=== PATIENT | female | born 1955 | race Caucasian/White ===

== ENCOUNTER 2021-09-23 12:11 | Outpatient (CLI) | payer MEDICAID, SELFPAY ==
--- NOTE | 2021-09-23 12:57 | MM_ITS ---
WS: [id number] DIAGNOSTIC LEFT DIGITAL MAMMOGRAM WITH CAD HISTORY: HX OF BREAST CA; RT MASTECTOMY COMPARISON: 04/15/2019, 12/04/2017 Technique: CC, MLO and ML views. Breast composition: There are scattered areas of fibroglandular density. Long-term stability of a no dule in the upper outer quadrant and additional lymph nodes towards the axillary tail. No suspicious masses or calcifications. MM/[place] [id number] IMPRESSION: BI-RADS: 2-Benign FOLLOW UP: 1 Year Follow-up
== END 2021-09-23 12:12 | disposition home or self-care (01) ==
LOC: RADSHAW 12:19
PROVIDERS: PCP Family Medicine; Visit Provider Family Medicine
DX: Z85.3 Personal history of malignant neoplasm of breast (principal)
CPT/HCPCS: 77065

== ENCOUNTER 2024-06-21 08:37 | Emergency (ER) | payer MEDICAID, MEDICARE, SELFPAY ==
[2024-06-21 08:42] VITALS: BP 147/81; PULSE 104; TEMP 36.8; O2SAT 98; BMI 67.3
--- NOTE | 2024-06-21 08:46 | XR_ITS ---
WS: [id number] PORTABLE CHEST HISTORY: Shortness of breath COMPARISON: None available. Low lung volumes. Significant decreased pulmonary expansion and inspiration effort. Mild elevation of the RIGHT hemidiaphragm. No pleural effusion or pneumothorax. Cardiac size: Cardiac silhouette is enlarged but this is probably exacerbated by portable technique a nd poor inspiration. Mediastinum/Aorta: Normal mediastinum. No osseous abnormality seen. XR/XR chest 1V portable [id number] IMPRESSION: 1. Quality this examination is compromised by body habitus, portable technique and poor inspiration. 2. Slight elevation RIGHT hemidiaphragm. 3. Heart appears enlarged but this is probably related to technique.
[2024-06-21 08:59] VITALS: PULSE 99; O2SAT 98
[2024-06-21 09:19] LABS: Basophils % 0.4 %; Eosinophils # 0.1 10^3/uL (0.0-0.8); Eosinophils % 1.3 %; Lymphocytes # 1.5 10^3/uL (0.8-4.8); Lymphocytes % 21.7 %; Mean Corpuscular HGB Conc 31.7 g/dL (30-55); Mean Corpuscular Hemoglobin 30.6 pg (27-33); Mean Corpuscular Volume 96.8 fl (85-98); Mean Platelet Volume 9.1 fL (7.4-10.4); Monocytes # 0.6 10^3/uL (0.2-0.9); Monocytes % 8.4 %; Neutrophils # 4.63 10^3/uL (1.8-7.7); Neutrophils % 68.1 %; Nucleated Red Blood Cells % 0 %; Platelet Count 236 10^3/cmm (157-399); Red Blood Count 4.34 10^6/uL (3.85-5.65); Red Cell Distribution Width 13.6 % (12.1-15.1); White Blood Count 6.81 10^3/uL (3.29-11.43)
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
--- NOTE | 2024-06-21 09:38 | ECG_ITS ---
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 Measurements Intervals [place] Rate: 95 P: 67 CO: 225 QRS: -42 QRSD: 137 T: 51 QT: 396 QTc: 498 Interpretive Statements SINUS RHYTHM WITH FIRST DEGREE AV BLOCK LEFT AXIS DEVIATION [QRS AXIS < -30] RIGHT BUNDLE BRANCH BLOCK [120+ ms QRS DURATION, UPRIGHT V1, 40+ ms S IN I/aVL/V4/V5/V6] No previous ECG available for comparison Electronically Signed On 06-21-2024 10:11:11 CDT by Evaristo Mariee M.D. [id number]
[2024-06-21 09:45] LABS: Alanine Aminotransferase 11 U/L (0-33); Albumin Level 3.8 g/dL (3.5-5.2); Alkaline Phosphatase 87 U/L (35-105); Anion Gap 18.2 (5-19); Aspartate Amino Transferase 11 U/L (0-32); Blood Urea Nitrogen 25 mg/dL (8-23); Calcium 9.4 mg/dL (8.5-10.5); Carbon Dioxide 25 mmol/L (22-29); Chloride 104 mmol/L (98-107); Globulin 3.7 g/dL (1.3-4.6); Glomerular Filtration Rate 44.8 mL/min (90-130); Glucose 96 mg/dL (65-115); NT Pro B Type Natriuretic Pept 70 pg/mL (0-125); Osmolality Calculated 300 mOsm/kg (285-295); Potassium 4.2 mmol/L (3.5-5.1); Sodium 143 mmol/L (136-145); Total Bilirubin 0.3 mg/dL (0.15-1.2); Total Protein 7.5 g/dL (6.6-8.7)
[2024-06-21 09:49] LABS: Creatinine Clr Calc Pharmacy 64.5604
--- NOTE | 2024-06-21 10:08 | USCV_ITS ---
Julita Dorado Age: 69 Gender: F : 1955 Exam Date: 06/21/2024 10:52 Ordering Phys: Lily De La Fuente MD Technologist: CT Exam Location: [facility] [place]_ Indication: swelling PROCEDURES: Venous duplex imaging was performed in bilateral lower extremities. FINDINGS: Examination was technically limited due to body habitus. No evidence of DVT seen in any vessel visualized at this time. Not all veins are well seen. CONCLUSIONS Technically limited exam. No DVT seen but not all seen adequately. Dr. Carmelita Sainz DO (Electronically Signed) Final Date: 21 June 2024 12:57 S
[2024-06-21] MEDS: FUROsemide 10 mg/mL SDV 10mL 40 MG IVP (11:00)
[2024-06-21 13:00] VITALS: BP 168/90; PULSE 91; O2SAT 96
[2024-06-21 16:42] VITALS: BP 166/87; PULSE 98; O2SAT 96
[2024-06-21 23:41] VITALS: PULSE 95; RESP 18; O2SAT 95
== END 2024-06-21 23:42 | disposition home or self-care (01) ==
PROVIDERS: Emergency Provider Emergency Medicine
DX: R60.0 Localized edema (principal); I87.8 Other specified disorders of veins; E66.01 Morbid (severe) obesity due to excess calories; Z68.44 Body mass index [BMI] 60.0-69.9, adult; L89.302 Pressure ulcer of unspecified buttock, stage 2; N28.9 Disorder of kidney and ureter, unspecified; I45.10 Unspecified right bundle-branch block; I44.0 Atrioventricular block, first degree
CPT/HCPCS: 36415; 71045; 80053; 83880; 85025; 93005; 93970; 96374; 99285; J1940